=== PATIENT | female | born 2000 | race Two or more races ===

== ENCOUNTER 2025-05-26 17:29 | Emergency (ER) | payer OTHER ==
[~2025-05-26] VITALS: Ht 175.3 cm; Wt 77.1 kg
[2025-05-26] MEDS ORDERED: PROAIR RESPICL90 MCG IH (17:54)
[2025-05-26] MEDS ORDERED: FLOVENT IH (17:55)
[2025-05-26] MEDS ORDERED: CEFTRIAXONE SODIUM 1,000 MG VIAL ONE (18:26)
[2025-05-26] MEDS ORDERED: KETOROLAC TROMETHAMINE 30 MG VIAL ONE (18:26)
[2025-05-26] MEDS ORDERED: DEXAMETHASONE SODIUM PHOSPHATE 4 MG/ML VIAL ONE (18:26)
[2025-05-26] MEDS ORDERED: AMOX-CLAV 875-1 EAC1 PO (18:27)
[2025-05-26] MEDS ORDERED: CEFTRIAXONE SODIUM 1,000 MG VIAL IM ONE (18:30)
[2025-05-26] MEDS ORDERED: KETOROLAC TROMETHAMINE 30 MG VIAL IM ONE (18:30)
[2025-05-26] MEDS ORDERED: DEXAMETHASONE SODIUM PHOSPHATE 4 MG/ML VIAL IM ONE (18:30)
== END 2025-05-26 20:19 ==
LOC: ER 17:29
DX: J03.80 Acute tonsillitis due to other specified organisms (principal)